=== PATIENT | female | born 2000 | race Caucasian/White ===

== ENCOUNTER 2025-03-20 10:20 | Emergency (ER) | payer OTHER, SELFPAY ==
--- OUTSIDE RECORDS SUMMARY | 2023-03-25 05:10 | XMS_ITS | Continuity of Care Document ---
Author Organization [facility] [place] A Address [address] [place] [address] Phone Care Team Providers Care Caustic Purification Operator Name Role Phone Brenda Pelayo MD Unavailable Unavailable Allergies, Adverse Reactions, Alerts Substance Reaction Status Criticality sertraline Suicide Active No Information Medications Medication Instructions Dosage Effective Dates (start - stop) Status Comments buspirone 10 mg tablet take 1 tablet by oral route 2 times every day 10 MG - Active ondansetron HCl 8 mg tablet take 1 tablet by oral route 2 times every day 8 MG - Active Microgestin Fe 1.5/30 (28) 1.5 mg-30 mcg (21)/75 mg (7) tablet take 1 tablet by oral route every day 1.00 tablet - Active Excedrin Migraine 250 mg-250 mg-65 mg tablet as directed - Active Procedures Procedure Date Office/Outpatient Visit, New 45-59 Min S Advance Directives Directive Yes / No Effective Date File Name No Information Encounters Encounter Description Practice Location Reason(s) For Visit Diagnoses Date Provider Providers Copied on Encounter Office/Outpat ient Visit, New 45-59 Min [facility], [address], [place], [id number], [place] tel:[phone] [facility] [place] Discuss endometriosis symptoms (chief complaint) Endometriosis [address] Pierce Gutierrez. [address], [place], [address], [place]. tel:[phone] Referring Provider: Brenda Gomez, [address], [place], [address]. tel:[phone] [facility], [address], [place], [id number], [place] tel:[phone] [facility] [place] No Information [address] Pierce Gutierrez. [address], [place], [address], [place]. tel: [phone] Family History Family Member Type Diagnosis Age At Onset Sister Problem Asperger's Maternal grandfather Problem Cancer, lung Maternal grandmother Problem Endometriosis Mother Problem Depression Maternal grandfather Problem Cancer, prostate Mother Problem Alive and well Father Problem Depression Father Problem Alive and well Mother Problem Anxiety Maternal grandfather Problem Cancer, brain Problem Family history of Alzheimer' s disease Maternal grandfather Problem Heart Valve Defect Mother Problem Endometriosis Immunizations Vaccine Date Status Comments HPV (9-valent) administered Source: [employer] [facility] Gardasil administered Source: Public Agency HPV (9-valent) administered Source: [employer] Tdap administered Source: Public Agency Payers Payer name Insurance type Covered green party ID Authorjina anish(s) [employer] Family CI [id number] Social History Type Description Quantity Date Captured Comments Alcohol Use Details 4 drinks weekly Caffeine Use Details tea 1 cup per day Tobacco Use Status Current non-smoker Smoking Status Never smoker Non-Smoking Tobacco Use Details : No Details Available : No Details Available Sex Female Vital Signs Date / Time: Height Weight BMI Pulse Rate Blood Pressure Temperature Respiratory Rate Body Surface Area Head Circumference BMI percentile Pulse Ox Inhaled Ox 10:10 AM 65.00 in 154.20 lbs 25.6 6 kg/m eter (2) 108/64 mm[Hg] Chief Complaint And Reason For Visit From encounter dated 03/25/2023 10:10'. Discuss endometriosis symptoms (chief complaint). Description: New patient for discussion of endometriosisDysmenorrhea since menarche and everyone in (her) family has endometriosis.Had a Kyleena IUD which helped periods for a while but she was still having periods here and there and symptoms were worsening over time. She underwent laparoscopy in 08/2021 with visually- and pathology-confirmed endometriosis. The operative report indicates 30 areas were fulgurated. A deep lesion was removed overlying one of her uterus. Although the op report doesn't mention it, she was told lesions were on her liver and bowel in addition to throughout the pelvis. About 6 months after surgery, she began having GI symptoms with her cycles - feeling like she couldn't eat while having her period, significant n/v (now feels nauseated most of the time). Has seen GI and was recommended to start a PPI which wasn't helpful. They are considering colonoscopy and endoscopy. Because these symptoms continued, she was started on OCPs in November and then had her IUD removed in December as the OCPs seemed to be helping. She now feels very emotional/depressed (doesn't feels he's at a point where she needs therapy or medication) and has migraines with aura. If she's even a few hours late in taking her pill, she has breakthrough bleeding. She has additionallyhad syncopal episodes for years with so far negative w/u. She reports possible correlation with menses. Often has a sensation of her heart racing and being short of breath before it occurs. Recent intermittent chest tightness as well. She had a syncopal episode in December and suffered a concussion after hitting her head. She has tried Depo and Nexplanon also in the past. She liked Depo but her family told her it made her crazy. She liked Nexplanon but bleeding was unpredictable. She has seen a couple OB/Gyns recently and felt like they didn't have answers for her. History Of Present Illness Encounter Date Complaint History Of Prese nt Illness Discuss endometriosi s symptoms New patient for discussion of endometriosisDysmenorrhea since menarche and everyone in (her) family has endometriosis. Had a Kyleena IUD which helped periods for a while but she was still having periods here and there and symptoms were worsening over time. She underwent laparoscopy in 08/2021 with visually- and pathology-confirmed endometriosis. The operative report indicates 30 areas were fulgurated. A deep lesion was removed overlying one of her uterus. Although the op report doesn't mention it, she was told lesions were on her liver and bowel in addition to throughout the pelvis. About 6 months after surgery, she began having GI symptoms with her cycles - feeling like she couldn't eat while having her period, significant n/v (now feels nauseated most of the time). Has seen GI and was recommended to start a PPI which wasn't helpful. They are considering colonoscopy and endoscopy. Because these symptoms continued, she was started on OCPs in November and then had her IUD removed in December as the OCPs seemed to be helping. She now feels very emotional/depressed (doesn't feels he's at a point where she needs therapy or medication) and has migraines with aura. If she's even a few hours late in taking her pill, she has breakthrough bleeding. She has additionally had syncopal episodes for years with so far negative w/u. She reports possible correlation with menses. Often has a sensation of her heart racing and being short of breath before it occurs. Recent intermittent chest tightness as well. She had a syncopal episode in December and suffered a concussion after hitting her head. She has tried Depo and Nexplanon also in the past. She liked Depo but her family told her it made her crazy. She liked Nexplanon but bleeding was unpredictable. She has seen a couple OB/Gyns recently and felt like they didn't have answers for her. Instructions Date Instruction Additional Infor teodora No Information Assessments Type Assessment Date assessment Endometriosis impression Laparoscopy 2021 - eep infiltrating lesion removed overlying uterus, 30 areas fulgurated (pt reports this included liver and bowel)Migraines with auraFeeling more depressed since started OCPs alsoPersistent n/v, worsened with mensesRecurrent syncopal episodes possibly cycle-related - experienced a concussion in December (right around the time she started OCPs)
[2025-03-20] VITALS (14 sets, daily range): BP systolic 107–127; BP diastolic 60–85; PULSE 51–65; RESP 18; TEMP 36.5; O2SAT 97–100; BMI 25.7
--- NOTE | 2025-03-20 10:46 | CRLHL7_ITS ---
For Patients: As a result of the Century Cures Act, medical imaging exams and procedure reports are released immediately into your electronic medical record. You may view this report before your referring provider. If you have questions, please contact your health care provider. INDICATION: Pelvic pain TECHNIQUE: Ultrasound pelvis transabdominal and transvaginal for better assessment or to better visualize the endometrium. Real-time sonographic images with spectral and color Doppler imaging of the ovaries were obtained. COMPARISON: None. FINDINGS: Uterus: 7.3 x 3.2 x 4.2 cm. Normal echotexture of the myometrium. No masses. Trace cervical fluid likely physiologic Endometrium: Transvaginal imaging was performed to better evaluate the endometrium. Endometrial thickness measures 10 mm. No sign of endometrial mass or fluid. Right ovary measures 3.6 x 2.1 x 2.3 cm. Left ovary measures 4.4 x 2.4 x 3.4 cm. Left corpus luteal cyst measuring up to 1.9 cm. No ovarian or adnexal masses. Normal arterial and venous blood flow is demonstrated in both ovaries. Cul-de-sac: Trace free fluid in the cul-de-sac. IMPRESSION: Unremarkable pelvic ultrasound Dictated by Selina Simon MD @ 03/20/2025 11:57:32 AM (Electronically Signed)
--- NOTE | 2025-03-20 10:57 | ED_ITS ---
HPI - Abdominal Pain General Time Seen by Provider: 10:57 Date Seen: 03/20/25 Chief Complaint: Abdominal Pain Stated Complaint: possible oviarina cysts Time Seen by Provider: 03/20/25 10:57 Source: patient and RN notes reviewed Mode of arrival: ambulatory Limitations: no limitations History of Present Illness HPI narrative: This 24-year-old female is coming in with pelvic pain, more so on the right starting this morning. It is severe, she states she has a history of ovarian cysts. She does not think that there is any chance for . The pain is bad enough that she had an emesis this morning. The pain started suddenly at 7:00 a.m.. She also reports endometriosis found on laparoscopy with ovarian cysts as well, the surgery was in 2020. She states she had 40 nodules fulgurated. Her last menstrual period was February 20 but she did have some heavy spotting about 2 weeks ago. She is not on any control. She will tend to have nausea 0 with abdominal pain. [employer] has reportedly worked for her. It sounds as if she has had Toradol before and has worked well. She does not believe she is had anything like morphine before. Reviewed with her that we will start with Toradol but if she needs something stronger, may need to move to narcotics. No records in [facility]. elicited complaint: abdominal pain Related Data Previous Rx's ?Medication ?Instructions ?Recorded ketorolac 10 mg tablet 10 mg PO Q6H PRN pain #20 ta bs 03/20/25 Allergies Allergy/AdvReac Type Severity Reaction Status Date / Time No Known Drug Allergies Allergy Verified 03/20/25 10:44 Review of Systems Status of ROS Reports: 6 or more systems reviewed and unremarkable except as noted in History and below Exam Const: Vital Signs, click to edit/add: Vital Signs - 24 hr 03/20/25 10:37 03/20/25 11:04 03/20/25 11:05 Temperature 97.7 F Pulse Rate 61 56 L Pulse Rate [Pulse Oximeter] 64 Respiratory Rate 18 Blood Pressure 107/61 Blood Pressure [Ri ght Upper Arm] 127/85 Pulse Oximetry 99 98 99 Oxygen Delivery Me thod Room Air 03/20/25 11:15 03/20/25 11:41 03/20/25 11:45 Temperature Pulse Rate 61 65 63 Pulse Rate [Pulse Oximeter] Respiratory Rate Blood Pressure Blood Pressure [Ri ght Upper Arm] Pulse Oximetry 97 99 100 Oxygen Delivery Me thod 03/20/25 11:51 03/20/25 12:00 03/20/25 12:02 Temperature Pulse Rate 51 L 61 61 Pulse Rate [Pulse Oximeter] Respiratory Rate Blood Pressure 113/71 108/70 Blood Pressure [Ri ght Upper Arm] Pulse Oximetry 99 99 99 Oxygen Delivery Me thod 03/20/25 12:15 03/20/25 12:17 03/20/25 12:18 Temperature Pulse Rate 63 53 L 58 L Pulse Rate [Pulse Oximeter] Respiratory Rate Blood Pressure 117/60 Blood Pressure [Ri ght Upper Arm] Pulse Oximetry 98 100 99 Oxygen Delivery Me thod 03/20/25 12:30 03/20/25 12:32 Temperature Pulse Rate 61 58 L Pulse Rate [Pulse Oximeter] Respiratory Rate Blood Pressure 107/61 Blood Pressure [Ri ght Upper Arm] Pulse Oximetry 98 99 Oxygen Delivery Me thod This 24-year-old female is alert, interactive, seems uncomfortable but no apparent distress, seen in exam room 5. Sclera clear, face atraumatic, grimacing at times. Lungs are clear, good air entry, no wheezing or crackles, no tachypnea. CV regular rate and rhythm, no murmur, normal S1-S2, no S3-S4. Abdomen is soft, nondistended, normal bowel sounds. She has suprapubic pain, pain throughout the lower abdomen but right lower quadrant is certainly more significantly painful for her on palpation. I do not feel any masses. Documenting provider has reviewed patient's vital signs: yes Course Course ED Course: This 24-year-old female who reportedly has history of endometriosis and ovarian cyst. Certainly the rapid presentation and severe pain could suggest ovarian cyst disease. Torsion does need to be a consideration. Nursing staff maxine mendoza ordered the pelvic ultrasound on arrival, we are waiting this. We will get some basic labs, confirm status. Will initiate Toradol and Zofran. Reevaluation(s) Time of Reevaluation #1: 12:40 Reevaluation #1: Reviewed normal US with patient, normal labs. She is feeling better, happy to know that there is no ovarian torsion as she was worried about this. We discussed other etiologies including her endometriosis. I am doubtful that this is early appendicitis, seems very atypical in presentation with sudden severe onset; believe this is very likely endometriosis at this time. We will collect a UA in completion of this laboratory work up, ensure no infection or hematuria suggestive of possible kidney stone. Time of Reevaluation #2: 13:05 Reevaluation #2: Reviewed urinalysis is reassuring, no significant hematuria, no evidence of infection. She is feeling better. We discussed sending her with some oral Toradol, she feels works better than just regular ibuprofen. She understands of both from NSAIDs and should only use 1 or the other. We did discuss CT imaging, she is of the opinion of observing right now and not doing any CT imaging. Her last surgery reportedly was over 2 years ago, she knows that endometriosis can come back. She will follow-up with OB Gyne. Vital Signs Vital signs: Initial Vital Signs Temperature 97.7 F 03/20/25 10:37 Temperature Source Temporal Artery Scan 03/20/25 10:37 Pulse Rate 64 03/20/25 10:37 Respiratory Rate 18 03/20/25 10:37 Blood Pressure 127/85 03/20/25 10:37 Blood Pressure Mean 99 03/20/25 10:37 Blood Pressure Position Sitting 03/20/25 10:37 Pulse Oximetry 99 03/20/25 10:37 Oxygen Delivery Method Room Air 03/20/25 10:37 Vital Signs Temperature 97.7 F 03/20/25 10:37 Pulse Rate 64 03/20/25 10:37 Respiratory Rate 18 03/20/25 10:37 Blood Pressure 127/85 03/20/25 10:37 Pulse Oximetry 99 03/20/25 10:37 Oxygen Delivery Method Room Air 03/20/25 10:37 Temperature 97.7 F 03/20/25 10:37 Pulse Rate 58 L 03/20/25 12:32 Respiratory Rate 18 03/20/25 10:37 Blood Pressure 107/61 03/20/25 12:32 Pulse Oximetry 99 03/20/25 12:32 Oxygen Delivery Method Room Air 03/20/25 10:37 Medications Administered Medications: Discontinued Medications Generic Name Dose Route Start Last Admin Trade Name Freq PRN Reason Stop Dose Admin Sodium Chloride 1,000 mls @ 500 mls/hr 03/20/25 11:02 03/20/25 11:45 0.9 % Sodium Chloride 1000 Ml IV 03/20/25 13:01 500 mls/hr .Q2H MATT Administration Ketorolac Tromethamine 15 mg 03/20/25 11:01 03/20/25 11:47 Ketorolac 15 Mg/Ml Inj IVP 03/20/25 11:02 15 mg ONCE ONE Administration Ondansetron HCl 4 mg 03/20/25 11:01 03/20/25 11:45 Ondansetron 2 Mg/Ml Inj IVP 03/20/25 11:02 4 mg ONCE ONE Administration MDM - Abdominal Pain Lab Data Attestation: I reviewed the patient's lab results. Labs: Lab Results 03/20/25 03/20/25 Range/Units 11:15 12:45 WBC 7.30 (4.50-11.00) K/uL RBC 4.58 (4.00-5.20) m/uL Hgb 13.2 (12.0-16.0) gm/dL Hct 39.5 (33.0-51.0) % MCV 86 (80-100) fL MCH 29 (26-34) pg MCHC 33 (32-36) gm/dL RDW Coeff of Demario 12.7 (11.5-15.5) % Plt Count 215 (140-440) K/uL Neut % (Auto) 58.4 (42.0-72.0) % Lymph % (Auto) 30.0 (20-44) % Person % (Auto) 8.8 (0.0-11.0) % Eos % (Auto) 2.1 (0.0-7.0) % Baso % (Auto) 0.4 (0.0-3.0) % Neut # (Auto) 4.27 (1.7-7.0) K/uL Lymph # (Auto) 2.19 (0.90-2.90) K/uL Person # (Auto) 0.60 (0.00-0.90) K/UL Eos # (Auto) 0.15 (0.00-0.50) K/uL Baso # (Auto) 0.03 (0.00-0.30) K/uL Abs Immat Gran (auto) 0.02 (0.00-0.30) K/uL Imm/Tot Granulo (auto) 0.3 % Sodium 136 (135-149) mmol/L Potassium 3.7 (3.6-5.1) mmol/L Chloride 105 (96-114) mmol/L Carbon Dioxide 24 (20-32) mmol/L Anion Gap 7 (7-15) mEq/L BUN 10 (5-24) mg/dL Creatinine 0.7 (0.5-1.5) mg/dL Estimated Creat Clear 118.43 Estimated GFR 122 ml/min Glucose 90 (60-115) mg/dL Lactate 1.0 (0.5-1.9) mmol/L Calcium 9.2 (8.4-10.6) mg/dL C-Reactive Protein < 0.5 L (0.5-1.0) mg/dL HCG, Qual Negative (Negative) Urine Color Yellow (Yellow) Urine Appearance Slightly Cloudy A (Clear) Urine pH 7.0 (5.0-8.5) Ur Specific [place] 1.015 (1.000-1.030) Urine Protein Negative (Negative) Urine Glucose (UA) Negative (Negative) Urine Ketones Negative (Negative) Urine Blood Negative (Negative) Urine Nitrite Negative (Negative) Urine Bilirubin Negative (Negative) Urine Urobilinogen 0.2 (0.2-1.0) Ur Leukocyte Esterase 1+ A (Negative) Urine RBC 0-2 (0-2) Urine WBC 2-5 (0-5) Ur Squamous Epith Cells Moderate A (None-Few) Urine Bacteria None (None) Imaging Data US pelvis: Attestation: I have reviewed the pertinent imaging results. Radiologist's impression: Patient: [facility] Facility:?[facility] Patient ID:?[id number] Site Patient ID:?[id number]. Site :?[id number] Study:?US-Pelvis -03/20/2025 11:47:37 AM Ordering Physician:Clarissa Vaughan Final Report: INDICATION: Pelvic pain TECHNIQUE: Ultrasound pelvis transabdominal and transvaginal for better assessment or to better visualize the endometrium. Real-time sonographic images with spectral and color Doppler imaging of the ovaries were obtained. COMPARISON: None. FINDINGS: Uterus: 7.3 x 3.2 x 4.2 cm. Normal echotexture of the myometrium. No masses. Trace cervical fluid likely physiologic Endometrium: Transvaginal imaging was performed to better evaluate the endometrium. Endometrial thickness measures 10 mm. No sign of endometrial mass or fluid. Right ovary measures 3.6 x 2.1 x 2.3 cm. Left ovary measures 4.4 x 2.4 x 3.4 cm. Left corpus luteal cyst measuring up to 1.9 cm. No ovarian or adnexal masses. Normal arterial and venous blood flow is demonstrated in both ovaries. Cul-de-sac: Trace free fluid in the cul-de-sac. IMPRESSION: Unremarkable pelvic ultrasound Dictated by Selina Simon MD @ 03/20/2025 11:57:32 AM (Electronic Signature) Discharge Plan Discharge Clinical Impression: Endometriosis Abdominal pain Qualifiers: Abdominal location: lower abdomen, unspecified Qualified Code(s): R10.30 - Lower abdominal pain, unspecified Patient Disposition: Home, Self-Care Condition: Stable Instructions: Endometriosis (ED), Abdominal Pain (ED) Additional Instructions: Use Tylenol 1000 mg 3 times a day baseline for pain. For more severe pain, can use the Toradol. As pain is improving, can transition back to ibuprofen. Do not use Toradol and ibuprofen together, both are from NSAID class. You will need to follow-up with OB Gyne for your endometriosis. If you should have further concerns with your abdominal pain in the interim such as increasing pain, associated fever, change in symptoms that are concerning, please return to the ER for further evaluation. Activity Level: No Restrictions Prescriptions: New ketorolac 10 mg tablet 10 mg PO Q6H PRN (Reason: pain) Qty: 20 0RF Rx Instructions: maximum total duration of 5 days from all oral, intranasal, or parenteral formulations Follow Up/Referrals: Provider,Not a Local [Primary Care Provider, Family Practice] Stand Alone Forms: Snipi Info Instructions
[2025-03-20 11:24] LABS: Hematocrit 39.5 % (33.0-51.0); Hemoglobin* 13.2 gm/dL (12.0-16.0); Immature Granulocytes Abs Auto 0.02 K/uL (0.00-0.30); Immature Granulocytes Pct Auto 0.3 %; Lymphocytes Absolute Auto 2.19 K/uL (0.90-2.90); Mean Corpuscular HGB Conc 33 gm/dL (32-36); Mean Corpuscular Hemoglobin 29 pg (26-34); Mean Corpuscular Volume 86 fL (80-100); RDW Coefficient of Variation % 12.7 % (11.5-15.5); Red Blood Count 4.58 m/uL (4.00-5.20); White Blood Count* 7.30 K/uL (4.50-11.00)
[2025-03-20 11:26] LABS: Lactate* 1.0 mmol/L (0.5-1.9)
[2025-03-20 11:32] LABS: Slide Review Reflex No
[2025-03-20] MEDS: ONDANSETRON 2 MG/ML inj 4 MG IVP (11:45)
[2025-03-20 11:54] LABS: Chloride* 105 mmol/L (96-114)
[2025-03-20 11:55] LABS: Potassium* 3.7 mmol/L (3.6-5.1); Sodium* 136 mmol/L (135-149)
[2025-03-20 11:57] LABS: Blood Urea Nitrogen* 10 mg/dL (5-24); Creatinine* 0.7 mg/dL (0.5-1.5); Est. Creatinine Clearance* 118.43; Estimated Glomerular Filt Rate 122 ml/min
[2025-03-20 11:58] LABS: Anion Gap 7 mEq/L (7-15); Calcium* 9.2 mg/dL (8.4-10.6); Carbon Dioxide* 24 mmol/L (20-32); Glucose* 90 mg/dL (60-115)
[2025-03-20 12:20] LABS: HCG Qualitative Serum* Negative (Negative)
[2025-03-20 12:54] LABS: Appearance Urine Slightly Cloudy (Clear)
== END 2025-03-20 13:21 | disposition home or self-care (01) ==
PROVIDERS: Emergency Provider Family Medicine
DX: N80.9 Endometriosis, unspecified (principal); R10.30 Lower abdominal pain, unspecified
CPT/HCPCS: 36415; 76830; 76856; 80048; 81001; 83605; 84703; 85025; 86140; 87086; 93976; 96374; 96375; 99284; J1885; J2405; J7030